=== PATIENT | male | born 1955 ===

== ENCOUNTER 2017-10-30 19:55 | Emergency (ER) | payer SELFPAY ==
[2017-10-30 20:16] VITALS: RESP 20; TEMP 98.1; O2SAT 98
--- NOTE | 2017-10-30 20:58 | C.PDOC ---
History Of Present Illness 62 year old male presents to ED for evaluation of lower mid back pain and pain and swelling to left wrist after fall yesterday. Pt states he fell 3 steps off a ladder at home yesterday, fell backwards, and hit his head, back, and smashed his left hand on the floor. Notes taking Naproxen with some relief. Denies LOC, neck pain, numbness, tingling or weakness, or any other injuries. - HPI Time Seen by Provider: 10/30/17 20:18 Chief Complaint (Nursing): Trauma History Per: Patient History/Exam Limitations: no limitations Onset/Duration Of Symptoms: Days Injury Occurred (Timing): Days Ago: (1) Recent travel outside of the [place]: No Additional History Per: Patient Past Medical History Reviewed: Historical Data, Nursing Documentation, Vital Signs Vital Signs: Last Vital Signs Temp 98.1 F 10/30/17 20:10 Pulse 74 10/30/17 22:14 Resp 20 10/30/17 22:14 BP 150/84 10/30/17 22:14 Pulse Ox 98 10/30/17 22:14 - Medical History PMH: HTN Family History: States: Unknown Family Hx - Social History Hx Alcohol Use: No Hx Substance Use: No - Immunization History Hx Tetanus Toxoid Vaccination: No Hx Influenza Vaccination: Yes Hx Pneumococcal Vaccination: No Review Of Systems Constitutional: Negative for: Fever, Chills Cardiovascular: Negative for: Chest Pain, Palpitations Respiratory: Negative for: Cough, Shortness of Breath Gastrointestinal: Negative for: Nausea, Vomiting, Abdominal Pain Musculoskeletal: Positive for: Back Pain, Hand Pain (left) Skin: Negative for: Rash, Bruising Neurological: Negative for: Headache, Dizziness Physical Exam - Physical Exam Appears: Well, Non-toxic, No Acute Distress Skin: Normal Color, Warm, Dry Head: Atraumatic, Normacephalic Eye(s): bilateral: Normal Inspection Oral Mucosa: Moist Neck: Normal ROM, No Midline Cervical Tenderness, No Paracervical Tenderness, Supple Cardiovascular: Rhythm Regular Respiratory: No Decreased Breath Sounds, No Rales, No Rhonchi, No Wheezing Gastrointestinal/Abdominal: Soft, No Tenderness Back: No Vertebral Tenderness, Paraspinal Tenderness (bilateral lumbar, left trapezius muscle tenderness) Extremity: No Normal ROM (painful ROM of left wrist, from left elow and shoulder ), Tenderness (left wrist), Capillary Refill (<2 seconds), No Deformity, Swelling (left wrist) Pulses: Left Radial: Normal, Right Radial: Normal Neurological/Psych: Oriented x3, Normal Speech, Normal Cognition, Normal Motor, Normal Sensation ED Course And Treatment O2 Sat by Pulse Oximetry: 98 (RA) Pulse Ox Interpretation: Normal Orthopedic Time Performed: 21:10 Time Out: Side verified, Site verified, Patient ID confirmed Procedure: Splint Type: Reverse (sugar tong) Location: Left, Wrist Consent obtained: Verbal Performed by: Mid-level Provider (done by CP, checked by me.) Diagnosis: Fracture (comminuted distal radial fracture) Type: Comminuted Location: Left, Distal Bone: Radius Capillary refill: Normal Distal Sensation: Normal Distal Motor Function: Normal Capillary Refill: Normal Compartment: Normal Distal Sensation: Normal Distal Motor Function: Normal Medical Decision Making Medical Decision Making: Plan: Left wrist x-ray Tylenol Cold compress Reassess, dispo 900pm xray reviewed, comminuted intra-articular distal radius fracture. Discussed with Dr Kauffman, advised to place splint and have pt f/u in his office. CP applied sugar tong splint and sling. . Disposition - Disposition Referrals: Manas Kauffman III, MD [Staff Provider] - Disposition: HOME/ ROUTINE Disposition Time: 21:41 Condition: GOOD Additional Instructions: Por favor, mantenga el brazo petar elevado cuando sea posible. [place] Naproxen 220 mg para el dolor 2-3 veces por da. Tambin puede caitlyn 650 mg de Tylenol cada 4 horas si es necesario para el dolor. Llame a la oficina del Dr. Daly valdes para hacer la gary ms cercana. Mantenga la tablilla cubierta con plstico al baarse. Regrese a la tammy de emergencias si la tablilla se siente apretada o dolorida, tiene entumecimiento u hormigueo en los dedos, dedos fros o azules o por cualquier otra inquietud. Please keep left arm elevated when possible. Take Naproxen 220 mg for pain 2-3 times per day. YOu may also take Tylenol 650 mg every 4 hours if needed for pain. Call Dr Kauffman's office tomorrow to make soonest appointment. Keep splint on- cover with plastic when bathing Return to ER if splint feels tight or painful, you have any numbness or tingling to your fingers, fingers cold or blue or for any other concerns. Instructions: Cast Care, Radius Fracture (DC) Forms: Gen Discharge Inst Sudanese, [employer] [facility] (Sudanese) Print Language: LITHUANIAN - Clinical Impression Clinical Impression: Distal radius fracture, left - PA / EMERGENCY MANAGEMENT CONSULTANT / Resident Statement MD/DO has reviewed & agrees with the documentation as recorded. - Scribe Statement The provider has reviewed the documentation as recorded by the Gildaiblisandra Key All medical record entries made by the Gildaiblisandra were at my direction and personally dictated by me. I have reviewed the chart and agree that the record accurately reflects my personal performance of the history, physical exam, medical decision making, and the department course for this patient. I have also personally directed, reviewed, and agree with the discharge instructions and disposition.
[2017-10-30 22:15] VITALS: BP 150/84; PULSE 74
--- NOTE | 2017-10-31 08:43 | RAD ---
PROCEDURE: Left Wrist Radiographs. HISTORY: s/p fall, pain and swelling to wrist COMPARISON: None. FINDINGS: BONES: Comminuted mildly displaced intra-articular fracture distal radius. Dorsal angulation of distal articular surface. JOINTS: Radiocarpal and intercarpal articulations are preserved. SOFT TISSUES: Normal. OTHER FINDINGS: None. IMPRESSION: Comminuted intra-articular distal radial fracture.
== END 2017-10-30 22:14 | disposition home or self-care (01) ==
LOC: C.ER 19:55 → SUPCPDRO 19:55 → C.ER 22:14
DX: S52.572A Other intraarticular fracture of lower end of left radius, initial encounter for closed fracture (principal); W11.XXXA Fall on and from ladder, initial encounter; Y92.009 Unspecified place in unspecified non-institutional (private) residence as the place of occurrence of the external cause

== ENCOUNTER 2017-11-27 16:57 | Emergency (ER) | payer OTHER ==
[2017-11-27 17:08] VITALS: BP 149/85; PULSE 86; RESP 20; TEMP 98; O2SAT 96
--- NOTE | 2017-11-27 17:33 | C.PDOC ---
History Of Present Illness 62 year old male presents to the emergency room with complaints of pressure in his wrist. Patient is currently wearing a cast for the past three weeks for a fracture he sustained in his left wrist area. Patient states the pressure is localized where the fracture occurred. Patient states he does not feel pain, only a tight sensation most appropriately described as pressure, and that it is worse at night. Patient reports he took Tylenol for the pain, but symptoms prevail. Time Seen by Provider: 11/27/17 17:18 Chief Complaint (Nursing): Upper Extremity Problem/Injury History Per: Patient, Correctional Officer Captain (Grabiel Valencia RN) History/Exam Limitations: no limitations Onset/Duration Of Symptoms: Days (3) Current Symptoms Are (Timing): Still Present Quality: Pressure Past Medical History Reviewed: Historical Data, Nursing Documentation, Vital Signs Vital Signs: Last Vital Signs Temp 98 F 11/27/17 17:04 Pulse 86 11/27/17 17:04 Resp 20 11/27/17 17:04 BP 149/85 11/27/17 17:04 Pulse Ox 96 11/27/17 17:33 - Medical History PMH: HTN Surgical History: No Surg Hx Family History: States: No Known Family Hx - Social History Hx Alcohol Use: No Hx Substance Use: No - Immunization History Hx Tetanus Toxoid Vaccination: No Hx Influenza Vaccination: No Hx Pneumococcal Vaccination: No Review Of Systems Except As Marked, All Systems Reviewed And Found Negative. Musculoskeletal: Positive for: Arm Pain (located at the wrist) Physical Exam - Physical Exam Appears: Well, Non-toxic Skin: Normal Color, Warm, No Cyanotic, No Ecchymosis, No Other (pallor) Extremity: Normal ROM (active range of motion, no difficulty in movement), Other (cast in place) Neurological/Psych: Oriented x3, Normal Speech, Normal Cognition ED Course And Treatment O2 Sat by Pulse Oximetry: 96 (RA) Pulse Ox Interpretation: Normal Medical Decision Making Medical Decision Making: Patient was offered pain medicine in the ER; patient refused. Patient to be prescribed Percocet to deal with his pain. Patient advised regarding proper use of Percocet, advised not to drive. Patient also advised regarding possible side effects such as constipation, for which it is recommended to take a stool softener. Disposition Counseled Patient/Family Regarding: Diagnosis, Need For Followup, Rx Given - Disposition Referrals: [facility] [Outside] [facility] [Outside] Disposition: HOME/ ROUTINE Disposition Time: 17:30 Condition: GOOD Prescriptions: Ondansetron [Zofran Odt] 4 mg PO TID PRN #9 odt PRN Reason: Nausea/Vomiting oxyCODONE/Acetaminophen [Percocet 5/325 mg Tab] 1 ea PO Q6 PRN #10 tab PRN Reason: Pain, Moderate (4-7) Instructions: Cast Care Forms: [facility] (Faroese) Print Language: PALESTINIAN - Clinical Impression Clinical Impression: Cast discomfort - Scribe Statement The provider has reviewed the documentation as recorded by the Scribe (River Holden) Provider Attestation: All medical record entries made by the Scribe were at my direction and personally dictated by me. I have reviewed the chart and agree that the record accurately reflects my personal performance of the history, physical exam, medical decision making, and the department course for this patient. I have also personally directed, reviewed, and agree with the discharge instructions and disposition.
== END 2017-11-27 17:43 | disposition home or self-care (01) ==
LOC: C.ER 16:57
DX: M25.532 Pain in left wrist (principal)